=== PATIENT | male | born 1945 | race Two or more races ===

== ENCOUNTER 2022-03-17 07:24 | Outpatient (CLI) | payer OTHER | END 2022-03-17 07:46 | disposition home or self-care (01) | LOC: NUCLEAR 07:24 | PROVIDERS: ATTEND Internal Medicine Cardiovascular Disease | DX: I20.8 Other forms of angina pectoris (principal); E11.40 Type 2 diabetes mellitus with diabetic neuropathy, unspecified; E78.89 Other lipoprotein metabolism disorders | CPT/HCPCS: 93017; A9500 ==

== ENCOUNTER 2023-07-16 07:30 | Outpatient (CLI) | payer OTHER | END 2023-07-16 07:32 | disposition home or self-care (01) | LOC: RX STUDY 07:30 | PROVIDERS: ATTEND Otolaryngology | DX: R13.14 Dysphagia, pharyngoesophageal phase (principal) ==

== ENCOUNTER 2023-08-10 08:57 | Inpatient (IN) | payer OTHER ==
[~2023-08-10] VITALS: Ht 177.8 cm; Wt 121.1 kg
[2023-08-11 10:10] LABS: HEMATOCRIT 35.1 % (39.0-48.0); HEMOGLOBIN 11.4 g/dL (13-16.00); MEAN CELL VOLUME 86.1 fL (80.0-100.00); MEAN CORPUSCULAR HEMOGLOBIN 27.9 pg (27.00-32.0); MEAN CORPUSCULAR HGB CONC 32.4 g/dl (32.0-36.0); PH,URINE 5.5 (5.0-8.0); PLATELET COUNT 160 K/uL (150-450); RED BLOOD COUNT 4.07 M/uL (4.00-6.00); RED CELL DISTRIBUTION WIDTH 14.9 % (11.5-14.5); URINE APPEARANCE Clear; URINE BILIRRUBIN Negative (NEGATIVE); URINE BLOOD Negative; URINE COLOR Yellow; URINE GLUCOSE Negative (NEGATIVE); URINE LEUKOCYTE Negative; URINE NITRATE Negative; URINE PROTEIN Negative (NEGATIVE); URINE UROBILINOGEN 0.2 E.U./dl
[2023-08-11 10:13] LABS: URINE BACTERIA 4.8 uL (0.0-1933)
[2023-08-11 10:26] LABS: URINE RBC 0.2 uL (0.0-20.8)
[2023-08-11 10:30] LABS: INR 1.14; PARTIAL THROMBOPLASTIN TIME 22.3 SECONDS (22.0-34.0); PROTHROMBIN TIME 11.9 SECONDS (9.0-11.5)
[2023-08-11 10:36] LABS: ALBUMIN 3.9 gm/dL (3.4-5.0); BILIRUBIN TOTAL 0.64 mg/dL (0.3-1.2); CALCIUM 9.1 mg/dL (8.5-10.1); CREATININE SERUM 1.45 mg/dL (0.70-1.30); GFR 47.07; GLOBULINA 2.7 G/DL (2.4-3.5); POTASSIUM 3.87 mEq/L (3.5-5.1); TOTAL PROTEIN 6.6 gm/dL (6.4-8.2)
[2023-08-11] MEDS ORDERED: PROTONIX20 MG PO (11:07)
[2023-08-11] MEDS ORDERED: CARVEDILOL3.125 MG (11:15)
[2023-08-11] MEDS ORDERED: COZAAR100 MG PO (11:16)
[2023-08-11] MEDS ORDERED: LIPITOR40 M1 PO (11:17)
[2023-08-11] MEDS ORDERED: ZETIA10 MG PO (11:17)
[2023-08-11] MEDS ORDERED: SYMBICORT 16010.2 GM IH (11:18)
[2023-08-11] MEDS ORDERED: BREZTRI AEROS10.7 GM IH (11:18)
[2023-08-17 14:50] LABS: ABG PH 7.359 (7.35-7.45); ABG PO2 71.4 mmHg (80-100); ABG pCO2 40.7 mmHg (35-45); BASE EXCESS -2.8 mmol/l; BICARBONATE 22.4 mmol/l (23-25); SaO2 93.2 %; Tco2 23.7 mmol/l; allen test SATISFACTORY; puncture site RADIAL RIGHT
[2023-08-17 14:52] LABS: o2 21 %
[2023-08-17 18:28] LABS: HEMATOCRIT 34.4 % (39.0-48.0); HEMOGLOBIN 11.5 g/dL (13-16.00); MEAN CELL VOLUME 84.9 fL (80.0-100.00); MEAN CORPUSCULAR HEMOGLOBIN 28.4 pg (27.00-32.0); MEAN CORPUSCULAR HGB CONC 33.4 g/dl (32.0-36.0); PLATELET COUNT 292 K/uL (150-450); RED BLOOD COUNT 4.05 M/uL (4.00-6.00); RED CELL DISTRIBUTION WIDTH 15.5 % (11.5-14.5)
[2023-08-17 19:38] LABS: ALBUMIN 3.1 gm/dL (3.4-5.0); CALCIUM 8.6 mg/dL (8.5-10.1); CREATININE SERUM 1.41 mg/dL (0.70-1.30); GFR 48.61; MAGNESIUM 1.9 mg/dL (1.8-2.4); PHOSPHOROUS 3.6 mg/dL (2.5-4.9); POTASSIUM 4.07 mEq/L (3.5-5.1)
[2023-08-18 08:20] LABS: HEMATOCRIT 32.6 % (39.0-48.0); HEMOGLOBIN 11.1 g/dL (13-16.00); MEAN CELL VOLUME 85.3 fL (80.0-100.00); PLATELET COUNT 205 K/uL (150-450); RED BLOOD COUNT 3.83 M/uL (4.00-6.00); RED CELL DISTRIBUTION WIDTH 15.5 % (11.5-14.5)
[2023-08-18 08:46] LABS: ALBUMIN 2.6 gm/dL (3.4-5.0); CREATININE SERUM 1.37 mg/dL (0.70-1.30); GFR 50.25; MAGNESIUM 1.9 mg/dL (1.8-2.4); PHOSPHOROUS 3.3 mg/dL (2.5-4.9); POTASSIUM 3.74 mEq/L (3.5-5.1)
[2023-08-18] MEDS ORDERED: ACETAMINOPHEN500 M2 PO (13:05)
[2023-08-18] MEDS ORDERED: NEURONTIN300 MG PO (13:05)
== END 2023-08-18 15:24 | disposition home or self-care (01) | DRG 349 ==
LOC: SURG 08-17 06:31 → O/R 08-17 06:31 → SURG 08-17 07:00
PROVIDERS: Internal Medicine Geriatric Medicine; ADMIT Surgery; ATTEND Surgery
PROC: 3E0T3BZ Introduction of Anesthetic Agent into Peripheral Nerves and Plexi, Percutaneous Approach (ICD-10-PCS; 2023-08-17)
PROC: 0DBP7ZZ Excision of Rectum, Via Natural or Artificial Opening (ICD-10-PCS; principal; 2023-08-17 07:00)
DX: C20 Malignant neoplasm of rectum (principal); Z20.822 Contact with and (suspected) exposure to COVID-19
CPT/HCPCS: 0184T; 64430

== ENCOUNTER 2025-01-31 07:19 | Outpatient (CLI) | payer OTHER ==
[~2025-01-31 07:19] MED LIST: ACETAMINOPHEN500 M2 PO; BREZTRI AEROS10.7 GM IH; CARVEDILOL3.125 MG; COZAAR100 MG PO; LIPITOR40 M1 PO; NEURONTIN300 MG PO; PROTONIX20 MG PO; SYMBICORT 16010.2 GM IH; ZETIA10 MG PO
== END 2025-01-31 07:22 | disposition home or self-care (01) ==
LOC: NUCLEAR 07:19
DX: C20 Malignant neoplasm of rectum (principal)
CPT/HCPCS: 78815; A9552

== ENCOUNTER 2025-03-11 18:47 | Emergency (ER) | payer OTHER ==
[~2025-03-11] VITALS: Ht 177.8 cm; Wt 75.3 kg
[2025-03-11] MEDS ORDERED: CARVEDILOL ER40 MG PO (19:08)
[2025-03-11] MEDS ORDERED: CARAFATE1 GM PO (19:08)
[2025-03-11] MEDS ORDERED: JANUVIA50 MG PO (19:09)
[2025-03-11] MEDS ORDERED: HYDRALAZINE HCL50 MG PO (19:09)
[2025-03-11] MEDS ORDERED: LOSARTAN POTAS100 MG PO (19:09)
[2025-03-11] MEDS ORDERED: LIPITOR40 MG PO (19:09)
[2025-03-11] MEDS ORDERED: NORVASC10 MG PO (19:09)
[2025-03-11] MEDS ORDERED: TRICOR145 MG PO (19:10)
[2025-03-11] MEDS ORDERED: 0.9 % SODIUM CHLORIDE 500 ML IV ONE (19:45)
[2025-03-11] MEDS ORDERED: LACTOBACILLUS ACIDOPHILUS 1 CAP CAP PO ONE ×2 (19:45)
[2025-03-11] MEDS ORDERED: FAMOTIDINE/PF 20 MG/2 ML VIAL IV ONE (19:45)
[2025-03-11] MEDS ORDERED: ONDANSETRON HCL 2 MG/ML VIAL ONE (19:45)
[2025-03-11] MEDS ORDERED: ONDANSETRON HCL 2 MG/ML VIAL IV ONE (19:45)
[2025-03-11] MEDS ORDERED: FAMOTIDINE/PF 20 MG/2 ML VIAL ONE (19:46)
[2025-03-11 20:17] LABS: HEMATOCRIT 36.2 % (39.0-48.0); MEAN CELL VOLUME 85.2 fL (80.0-100.00); MEAN CORPUSCULAR HEMOGLOBIN 28.2 pg (27.00-32.0); MEAN CORPUSCULAR HGB CONC 33.1 g/dl (32.0-36.0); PLATELET COUNT 206 K/uL (150-450); RED BLOOD COUNT 4.24 M/uL (4.00-6.00); RED CELL DISTRIBUTION WIDTH 15.4 % (11.5-14.5)
[2025-03-11 21:03] LABS: INR 1.13; PARTIAL THROMBOPLASTIN TIME 25.7 SECONDS (22.0-34.0); PROTHROMBIN TIME 12.2 SECONDS (9.0-11.5)
[2025-03-11 21:04] LABS: ALBUMIN 3.7 gm/dL (3.4-5.0); BILIRUBIN TOTAL 0.61 mg/dL (0.3-1.2); CALCIUM 8.8 mg/dL (8.5-10.1); CREATININE SERUM 1.31 mg/dL (0.70-1.30); GFR 52.78; GLOBULINA 3.3 G/DL (2.4-3.5); POTASSIUM 3.72 mEq/L (3.5-5.1)
[2025-03-11 21:07] LABS: URINE APPEARANCE Clear; URINE BILIRRUBIN Negative (NEGATIVE); URINE BLOOD Negative; URINE COLOR Yellow; URINE KETONE Negative (NEGATIVE); URINE LEUKOCYTE Negative; URINE NITRATE Negative; URINE PROTEIN Trace (NEGATIVE); URINE UROBILINOGEN 0.2 E.U./dl
[2025-03-11 21:10] LABS: URINE BACTERIA 7.3 uL (0.0-1933); URINE EPITHELIAL CELLS 1.5 uL (0.0-38.8); URINE RBC 4.5 uL (0.0-20.8); URINE WBC 1.8 uL (0.0-23.2)
[2025-03-11 21:17] LABS: URINE CAST 0.29 uL (0.0-1.40); URINE GLUCOSE 100 MG/DL (NEGATIVE)
[2025-03-11] MEDS ORDERED: LEVSIN0.125 MG PO (22:56)
[2025-03-11] MEDS ORDERED: INTESTINEX680 M1 PO (22:56)
[2025-03-11] MEDS ORDERED: PRILOSEC OTC20 MG PO (22:56)
[2025-03-11] MEDS ORDERED: HYOSCYAMINE SULFATE 0.125 MG TAB.SUBL SL ONE (23:00)
[2025-03-11] MEDS ORDERED: HYOSCYAMINE SULFATE 0.125 MG TAB.SUBL ONE (23:04)
== END 2025-03-11 23:23 | disposition home or self-care (01) ==
LOC: ER 18:48
PROVIDERS: General Practice
DX: R10.32 Left lower quadrant pain (principal); Z85.038 Personal history of other malignant neoplasm of large intestine; I10 Essential (primary) hypertension; J45.909 Unspecified asthma, uncomplicated; E78.49 Other hyperlipidemia; G47.39 Other sleep apnea; K21.9 Gastro-esophageal reflux disease without esophagitis; I87.2 Venous insufficiency (chronic) (peripheral); M85.88 Other specified disorders of bone density and structure, other site
CPT/HCPCS: 36415; 74177; 96365; 99284; J2405; J3490; Q9965

== ENCOUNTER 2025-05-22 13:35 | Outpatient (CLI) | payer OTHER ==
[~2025-05-22 13:35] MED LIST changes: +CARAFATE1 GM PO; +CARVEDILOL ER40 MG PO; +HYDRALAZINE HCL50 MG PO; +INTESTINEX680 M1 PO; +JANUVIA50 MG PO; +LEVSIN0.125 MG PO; +LIPITOR40 MG PO; +LOSARTAN POTAS100 MG PO; +NORVASC10 MG PO; +PRILOSEC OTC20 MG PO; +TRICOR145 MG PO
== END 2025-05-22 13:41 | disposition home or self-care (01) ==
LOC: TOM 13:35
DX: C20 Malignant neoplasm of rectum (principal); C61 Malignant neoplasm of prostate

== ENCOUNTER 2025-07-19 13:51 | Outpatient (CLI) | payer OTHER | END 2025-07-19 13:59 | disposition home or self-care (01) | LOC: RAD 13:51 | DX: M19.041 Primary osteoarthritis, right hand (principal); M19.042 Primary osteoarthritis, left hand ==